=== PATIENT | male | born 1970 | race Hispanic/Latino ===

== ENCOUNTER → 2019-07-08 | Outpatient (CLI) | payer OTHER ==
[2019-07-08 14:14] VITALS: BP 119/77
== END | disposition home or self-care (01) ==
LOC: WHH 08:25
PROVIDERS: ATTEND Podiatrist Foot & Ankle Surgery
DX: T87.81 Dehiscence of amputation stump (principal); E11.621 Type 2 diabetes mellitus with foot ulcer; L97.521 Non-pressure chronic ulcer of other part of left foot limited to breakdown of skin; E11.51 Type 2 diabetes mellitus with diabetic peripheral angiopathy without gangrene; E11.42 Type 2 diabetes mellitus with diabetic polyneuropathy; I10 Essential (primary) hypertension; F32.9 Major depressive disorder, single episode, unspecified; Y83.5 Amputation of limb(s) as the cause of abnormal reaction of the patient, or of later complication, without mention of misadventure at the time of the procedure
CPT/HCPCS: 73630; 87070; 87077 ×2; 87186 ×2; 99205; A4450

== ENCOUNTER → 2019-07-22 | Outpatient (CLI) | payer OTHER ==
[2019-07-22 10:03] VITALS: BP 129/82
== END | disposition home or self-care (01) ==
LOC: WHH 09:50
PROVIDERS: ATTEND Podiatrist Foot & Ankle Surgery
DX: T87.89 Other complications of amputation stump (principal); E11.621 Type 2 diabetes mellitus with foot ulcer; L97.521 Non-pressure chronic ulcer of other part of left foot limited to breakdown of skin; E11.51 Type 2 diabetes mellitus with diabetic peripheral angiopathy without gangrene; E11.42 Type 2 diabetes mellitus with diabetic polyneuropathy; I10 Essential (primary) hypertension; F32.9 Major depressive disorder, single episode, unspecified; Y83.5 Amputation of limb(s) as the cause of abnormal reaction of the patient, or of later complication, without mention of misadventure at the time of the procedure
CPT/HCPCS: 99211

== ENCOUNTER → 2019-07-29 | Outpatient (CLI) | payer OTHER ==
[2019-07-29 13:01] VITALS: BP 128/87
== END | disposition home or self-care (01) ==
LOC: WHH 10:45
PROVIDERS: ATTEND Podiatrist Foot & Ankle Surgery
DX: T87.89 Other complications of amputation stump (principal); E11.621 Type 2 diabetes mellitus with foot ulcer; L97.522 Non-pressure chronic ulcer of other part of left foot with fat layer exposed; E11.51 Type 2 diabetes mellitus with diabetic peripheral angiopathy without gangrene; E11.42 Type 2 diabetes mellitus with diabetic polyneuropathy; I10 Essential (primary) hypertension; F32.9 Major depressive disorder, single episode, unspecified; Y83.5 Amputation of limb(s) as the cause of abnormal reaction of the patient, or of later complication, without mention of misadventure at the time of the procedure
CPT/HCPCS: 11042

== ENCOUNTER → 2019-08-05 | Outpatient (CLI) | payer OTHER ==
[2019-08-05 13:57] VITALS: BP 127/84
== END | disposition home or self-care (01) ==
LOC: WHH 10:45
PROVIDERS: ATTEND Podiatrist Foot & Ankle Surgery
DX: T87.81 Dehiscence of amputation stump (principal); E11.621 Type 2 diabetes mellitus with foot ulcer; L97.521 Non-pressure chronic ulcer of other part of left foot limited to breakdown of skin; E11.42 Type 2 diabetes mellitus with diabetic polyneuropathy; E11.51 Type 2 diabetes mellitus with diabetic peripheral angiopathy without gangrene; I10 Essential (primary) hypertension; F32.9 Major depressive disorder, single episode, unspecified; Y83.5 Amputation of limb(s) as the cause of abnormal reaction of the patient, or of later complication, without mention of misadventure at the time of the procedure
CPT/HCPCS: 11042; A6021

== ENCOUNTER 2019-08-19 10:00 | Outpatient (CLI) | payer OTHER ==
[2019-08-19 14:18] VITALS: BP 139/89
== END 2019-08-19 11:49 | disposition home or self-care (01) ==
LOC: WHH 10:00
PROVIDERS: ATTEND Podiatrist Foot & Ankle Surgery
DX: T87.89 Other complications of amputation stump (principal); E11.621 Type 2 diabetes mellitus with foot ulcer; L97.521 Non-pressure chronic ulcer of other part of left foot limited to breakdown of skin; E11.51 Type 2 diabetes mellitus with diabetic peripheral angiopathy without gangrene; E11.42 Type 2 diabetes mellitus with diabetic polyneuropathy; I10 Essential (primary) hypertension; F32.9 Major depressive disorder, single episode, unspecified; Y83.5 Amputation of limb(s) as the cause of abnormal reaction of the patient, or of later complication, without mention of misadventure at the time of the procedure
CPT/HCPCS: 99214

== ENCOUNTER → 2020-02-10 | Outpatient (CLI) | payer BC ==
[2020-02-10 16:41] VITALS: BP 180/108
== END | disposition home or self-care (01) ==
LOC: WHH 10:00
PROVIDERS: ATTEND Podiatrist Foot & Ankle Surgery
DX: T87.89 Other complications of amputation stump (principal); E11.621 Type 2 diabetes mellitus with foot ulcer; L97.522 Non-pressure chronic ulcer of other part of left foot with fat layer exposed; E11.42 Type 2 diabetes mellitus with diabetic polyneuropathy; E11.51 Type 2 diabetes mellitus with diabetic peripheral angiopathy without gangrene; I10 Essential (primary) hypertension; F32.9 Major depressive disorder, single episode, unspecified; Z89.422 Acquired absence of other left toe(s); Y83.5 Amputation of limb(s) as the cause of abnormal reaction of the patient, or of later complication, without mention of misadventure at the time of the procedure
CPT/HCPCS: 11042; 11045; 82948; A4649

== ENCOUNTER → 2020-02-17 | Outpatient (CLI) | payer BC ==
[~2020-02-17] MED LIST: SILVER NITRATE APPLICATOR 1 SWAB TP ONE
--- NOTE | 2020-02-17 10:15 | NUR ---
RE: RBS = 459 Teaching done with pt regarding elevated blood sugar including need to see pcp for medication adjustment; also taught regarding diabetic diet choices and need to avoid concentrated sweets, etc. Dr Shi spoke with patient regarding the uncontrolled diabetes affecting wound healing. Patient verbalized understanding.
[2020-02-17 10:29] VITALS: BP 156/105
== END | disposition home or self-care (01) ==
LOC: WHH 10:00
PROVIDERS: ATTEND Podiatrist Foot & Ankle Surgery
DX: T87.89 Other complications of amputation stump (principal); E11.621 Type 2 diabetes mellitus with foot ulcer; L97.522 Non-pressure chronic ulcer of other part of left foot with fat layer exposed; E11.42 Type 2 diabetes mellitus with diabetic polyneuropathy; E11.51 Type 2 diabetes mellitus with diabetic peripheral angiopathy without gangrene; I10 Essential (primary) hypertension; F32.9 Major depressive disorder, single episode, unspecified; Y83.5 Amputation of limb(s) as the cause of abnormal reaction of the patient, or of later complication, without mention of misadventure at the time of the procedure
CPT/HCPCS: 11042; 11045; 82948; A4649

== ENCOUNTER → 2020-03-02 | Outpatient (CLI) | payer BC ==
[2020-03-02 10:33] VITALS: BP 166/101
== END | disposition home or self-care (01) ==
LOC: WHH 10:00
PROVIDERS: ATTEND Podiatrist Foot & Ankle Surgery
DX: T87.89 Other complications of amputation stump (principal); E11.621 Type 2 diabetes mellitus with foot ulcer; L97.522 Non-pressure chronic ulcer of other part of left foot with fat layer exposed; E11.42 Type 2 diabetes mellitus with diabetic polyneuropathy; E11.51 Type 2 diabetes mellitus with diabetic peripheral angiopathy without gangrene; I10 Essential (primary) hypertension; F32.9 Major depressive disorder, single episode, unspecified; Y83.5 Amputation of limb(s) as the cause of abnormal reaction of the patient, or of later complication, without mention of misadventure at the time of the procedure
CPT/HCPCS: 97597

== ENCOUNTER → 2020-03-16 | Outpatient (CLI) | payer BC ==
[2020-03-16 15:15] VITALS: BP 173/109
== END | disposition home or self-care (01) ==
LOC: WHH 10:00
PROVIDERS: ATTEND Podiatrist Foot & Ankle Surgery
DX: T87.89 Other complications of amputation stump (principal); E11.621 Type 2 diabetes mellitus with foot ulcer; L97.521 Non-pressure chronic ulcer of other part of left foot limited to breakdown of skin; E11.51 Type 2 diabetes mellitus with diabetic peripheral angiopathy without gangrene; E11.42 Type 2 diabetes mellitus with diabetic polyneuropathy; I10 Essential (primary) hypertension; F32.9 Major depressive disorder, single episode, unspecified; Y83.5 Amputation of limb(s) as the cause of abnormal reaction of the patient, or of later complication, without mention of misadventure at the time of the procedure
CPT/HCPCS: 82948; 99214

== ENCOUNTER 2020-04-27 10:08 | Outpatient (CLI) | payer BC ==
[2020-04-27 10:33] VITALS: BP 142/91
== END 2020-04-27 10:56 | disposition home or self-care (01) ==
LOC: WHH 10:08
PROVIDERS: ATTEND Podiatrist Foot & Ankle Surgery
DX: T87.89 Other complications of amputation stump (principal); E11.621 Type 2 diabetes mellitus with foot ulcer; L97.521 Non-pressure chronic ulcer of other part of left foot limited to breakdown of skin; E11.42 Type 2 diabetes mellitus with diabetic polyneuropathy; E11.51 Type 2 diabetes mellitus with diabetic peripheral angiopathy without gangrene; I10 Essential (primary) hypertension; F32.9 Major depressive disorder, single episode, unspecified; Y83.5 Amputation of limb(s) as the cause of abnormal reaction of the patient, or of later complication, without mention of misadventure at the time of the procedure
CPT/HCPCS: 11055

== ENCOUNTER 2021-11-09 03:37 | Inpatient (IN) | payer BC ==
[~2021-11-09] VITALS: Ht 175.3 cm; Wt 96.1 kg
[2021-11-09] MEDS ORDERED: 0.9%NACL 1000ML 1,000 ML IV ONE ×2 (04:30→06:30)
[2021-11-09 05:00] LABS: BASOPHILS % (AUTO) 0.6 % (0.0-5.0); EOSINOPHILS % (AUTO) 1.2 % (0.0-8.0); HEMATOCRIT 35.1 % (42-54); LYMPHOCYTES % (AUTO) 22.8 % (21.0-51.0); MEAN CORPUSCULAR HEMOGLOBIN 27.1 pg (27.0-33.0); MEAN CORPUSCULAR HGB CONC 31.9 g/dL (32.0-36.0); MONOCYTES % (AUTO) 10.9 % (3.0-13.0); NEUTROPHILS % (AUTO) 62.7 % (40.0-77.0); PLATELET COUNT (AUTO) 258 K/uL (130-400); RED BLOOD CELL COUNT(AUTO) 4.13 MIL/uL (4.50-6.20); WHITE BLOOD COUNT (AUTO) 11.3 K/uL (4.8-10.8)
[2021-11-09 05:08] LABS: CREATININE 1.9 mg/dL (0.5-1.5); POTASSIUM 3.5 mmol/L (3.5-5.1)
[2021-11-09 05:15] LABS: ALBUMIN 1.4 g/dL (3.5-5.0); BILIRUBIN,TOTAL 0.2 mg/dL (0.2-1.0); TOTAL PROTEIN, SERUM 7.2 g/dL (6.0-8.3)
[2021-11-09] MEDS ORDERED: 0.9%NACL 1000ML 1,000 ML IV SCH (06:30)
[2021-11-09] MEDS ORDERED: INSULIN HUMULIN R 100 UNIT/ML 3ML IV SCH (06:30)
[2021-11-09] MEDS ORDERED: CLINDAMYCIN IVPB 900MG/50ML 50 ML IV ONE (06:30)
[2021-11-09] MEDS ORDERED: INSULIN HUMULIN R 100 UNIT/ML 3ML ONE (06:30)
[2021-11-09 06:37] LABS: ABG BASE EXCESS -4.8 mmol/L (-2.0-3.0); ABG HCO3 19.5 mmol/L (21.0-28.0); ABG PCO2 34 mmHg (35-48)
[2021-11-09 06:42] LABS: AMPHET/METH SCREEN,URINE NEGATIVE (NEGATIVE); BARBITURATE SCREEN, URINE NEGATIVE (NEGATIVE); BENZODIAZEPINES SCREEN,URINE NEGATIVE (NEGATIVE); CANNABINOID SCREEN,URINE NEGATIVE (NEGATIVE); COCAINE SCREEN,URINE NEGATIVE (NEGATIVE); OPIATE SCREEN,URINE NEGATIVE (NEGATIVE); PHENCYCLIDINE SCREEN,URINE NEGATIVE (NEGATIVE)
[2021-11-09] MEDS ORDERED: LEVOFLOXACIN 750 MG/D5W 150 ML 150 ML IV SCH ×2 (07:00→09:00)
[2021-11-09] MEDS ORDERED: ACETAMINOPHEN 325 MG TAB PO PRN ×2 (07:00)
[2021-11-09] MEDS ORDERED: ONDANSETRON 4MG INJ IV PRN (07:00)
[2021-11-09] MEDS ORDERED: MORPHINE 2 MG SYG IVP PRN (07:00)
[2021-11-09] MEDS: CEFAZOLIN SODIUM 1 GM VIAL IVP SCH ×3 (07:00→22:35)
[2021-11-09] MEDS ORDERED: VANCOMYCIN PROTOCOL PER PHARMACY IV PRN (07:00)
[2021-11-09] MEDS ORDERED: ATOR10 PO (07:50)
[2021-11-09] MEDS ORDERED: LEVO500T90 PO (07:50)
[2021-11-09] MEDS ORDERED: METF-444 PO (07:50)
[2021-11-09] MEDS ORDERED: LISI30TA4 PO (07:50)
[2021-11-09] MEDS ORDERED: AMLO-257 PO (07:50)
[2021-11-09] MEDS ORDERED: CLIN-141 PO (07:50)
[2021-11-09] MEDS ORDERED: DEXTROSE 50%-WATER 50 ML DISP.SYRIN IV PRN (08:00)
[2021-11-09] MEDS ORDERED: GLUCAGON 1MG KIT 1 MG ML IM PRN (08:00)
[2021-11-09] MEDS: ENOXAPARIN SODIUM 30 MG/0.3 ML SQ SCH (10:41)
[2021-11-09] MEDS ORDERED: HYDRALAZINE 20MG/ML VIAL ONE (11:47)
[2021-11-09] MEDS: HYDRALAZINE 20MG/ML VIAL IV PRN (11:50)
[2021-11-09] MEDS ORDERED: CLINDAMYCIN IVPB 900MG/50ML 50 ML IV SCH (14:00)
[2021-11-09] MEDS ORDERED: INSULIN GLARGINE 100 UNITS/ML 10 ML VIAL SQ SCH (14:00)
[2021-11-09] MEDS: INSULIN HUMULIN R 100 UNIT/ML 3ML SQ SCH ×4 (16:30→20:05)
[2021-11-09 20:00] VITALS: BP 135/79
[2021-11-09] MEDS ORDERED: INSU3INS3 SQ (20:23)
[2021-11-09 23:34] VITALS: BP 122/66
[2021-11-10 03:18] VITALS: BP 155/81
[2021-11-10 05:17] LABS: BASOPHILS % (AUTO) 0.7 % (0.0-5.0); EOSINOPHILS % (AUTO) 1.7 % (0.0-8.0); HEMATOCRIT 27.6 % (42-54); LYMPHOCYTES % (AUTO) 18.1 % (21.0-51.0); MEAN CORPUSCULAR HEMOGLOBIN 27.5 pg (27.0-33.0); MEAN CORPUSCULAR HGB CONC 31.5 g/dL (32.0-36.0); MEAN CORPUSCULAR VOLUME 87.3 fL (79-99); MONOCYTES % (AUTO) 9.5 % (3.0-13.0); NEUTROPHILS % (AUTO) 68.8 % (40.0-77.0); PLATELET COUNT (AUTO) 407 K/uL (130-400); RED BLOOD CELL COUNT(AUTO) 3.16 MIL/uL (4.50-6.20); WHITE BLOOD COUNT (AUTO) 10.4 K/uL (4.8-10.8)
[2021-11-10 05:38] LABS: ASPARTATE AMINOTRANSFERASE 13 U/L (10-37); BILIRUBIN,TOTAL 0.1 mg/dL (0.2-1.0); CARBON DIOXIDE 25 mmol/L (21-32); CHLORIDE 104 mmol/L (101-111); CREATININE 1.7 mg/dL (0.5-1.5); GLOMERULAR FILTR. RATE CALC 45 mL/min (>60); GLUCOSE,RANDOM 296 mg/dL (70-105); POTASSIUM 3.4 mmol/L (3.5-5.1); SODIUM SERUM 135 mmol/L (136-145); TOTAL PROTEIN, SERUM 5.4 g/dL (6.0-8.3); UREA NITROGEN, BLOOD 19 mg/dL (7-18)
[2021-11-10 05:50] LABS: ALANINE AMINOTRANSFERASE < 6 U/L (12-78)
[2021-11-10] MEDS: CEFAZOLIN SODIUM 1 GM VIAL IVP SCH (06:51)
[2021-11-10] MEDS: INSULIN HUMULIN R 100 UNIT/ML 3ML SQ SCH ×8 (06:56→20:24)
[2021-11-10 07:10] VITALS: BP 165/93
[2021-11-10] MEDS: ENOXAPARIN SODIUM 30 MG/0.3 ML SQ SCH (08:04)
[2021-11-10] MEDS: INSULIN GLARGINE 100 UNITS/ML 10 ML VIAL SQ SCH (08:40)
[2021-11-10] MEDS ORDERED: MORPHINE 2 MG SYG IVP PRN (09:30)
[2021-11-10 11:05] VITALS: BP 183/106
[2021-11-10] MEDS ORDERED: KCL 20 MEQ ERTAB PO SCH (11:30)
[2021-11-10] MEDS: HYDRALAZINE 20MG/ML VIAL IV PRN ×2 (12:27→23:22)
[2021-11-10] MEDS ORDERED: PHARMACY COMMUNICATION MISC SCH (13:00)
[2021-11-10] MEDS ORDERED: VANCOMYCIN PROTOCOL PER PHARMACY IV SCH (13:00)
[2021-11-10] MEDS ORDERED: AMLODIPINE 5 MG TAB PO ONE (14:00)
[2021-11-10] MEDS ORDERED: VANCOMYCIN 1.5GM/NS 250ML IV SCH ×2 (14:00)
[2021-11-10 14:29] VITALS: BP 162/91
[2021-11-10 15:20] VITALS: BP 133/67
[2021-11-10] MEDS: CEFEPIME HCL 1 GM VIAL IVP SCH (15:53)
[2021-11-10 19:00] VITALS: BP 140/82
[2021-11-10] MEDS: ATORVASTATIN 20 MG TABLET PO SCH (20:23)
[2021-11-10 23:27] LABS: APPEARANCE,URINE Cloudy (CLEAR); BILIRUBIN,URINE Negative (NEGATIVE); COLOR,URINE Yellow (YELLOW); GLUCOSE, URINE (UA) 500 mg/dL (NEGATIVE); KETONES,URINE Negative (NEGATIVE); LEUKOCYTE ESTERASE ,URINE Negative (NEGATIVE); NITRATE,URINE Negative (NEGATIVE); OCCULT BLOOD,URINE Trace (NEGATIVE); PROTEIN,URINE >=1000 mg/dL (NEGATIVE); UROBILINOGEN,URINE 0.2 mg/dL (0.2-1.0)
[2021-11-11] VITALS: BP 167/95
[2021-11-11 00:10] LABS: BACTERIA,URINE Few /HPF (None Seen); RBC,URINE 0-1 /HPF (0-1); WBC,URINE 0-1 /HPF (0-1); YEAST,URINE BUDDING Few /HPF (None Seen)
[2021-11-11 00:11] LABS: SQUAMOUS EPITHELIAL CELL,UR Few /HPF (0-2)
[2021-11-11 00:14] LABS: FINE GRANULAR CASTS,URINE 0-2 /LPF (None Seen)
[2021-11-11 04:00] VITALS: BP 131/73
[2021-11-11] MEDS: INSULIN HUMULIN R 100 UNIT/ML 3ML SQ SCH ×7 (06:34→20:26)
[2021-11-11] MEDS: INSULIN GLARGINE 100 UNITS/ML 10 ML VIAL SQ SCH (07:00)
[2021-11-11 07:22] LABS: BASOPHILS % (AUTO) 0.5 % (0.0-5.0); EOSINOPHILS % (AUTO) 1.8 % (0.0-8.0); HEMATOCRIT 27.9 % (42-54); LYMPHOCYTES % (AUTO) 18.6 % (21.0-51.0); MEAN CORPUSCULAR HEMOGLOBIN 27.2 pg (27.0-33.0); MEAN CORPUSCULAR HGB CONC 32.6 g/dL (32.0-36.0); MEAN CORPUSCULAR VOLUME 83.3 fL (79-99); MONOCYTES % (AUTO) 8.8 % (3.0-13.0); NEUTROPHILS % (AUTO) 69.6 % (40.0-77.0); PLATELET COUNT (AUTO) 425 K/uL (130-400); RED BLOOD CELL COUNT(AUTO) 3.35 MIL/uL (4.50-6.20); RED CELL DISTRIBUTION WIDTH 12.2 % (11.0-15.5); WHITE BLOOD COUNT (AUTO) 9.6 K/uL (4.8-10.8)
[2021-11-11 07:34] LABS: CREATININE 1.3 mg/dL (0.5-1.5); POTASSIUM 3.2 mmol/L (3.5-5.1)
[2021-11-11 07:44] VITALS: BP 140/80
[2021-11-11] MEDS ORDERED: KCL 20 MEQ ERTAB PO SCH (08:30)
[2021-11-11] MEDS: VANCOMYCIN 750MG VIAL IVPB SCH ×2 (09:32→20:49)
[2021-11-11] MEDS: 0.9% NACL 250ML 250 ML IV SCH (09:33)
[2021-11-11] MEDS: LISINOPRIL 10 MG TABLET PO SCH (09:40)
[2021-11-11] MEDS: AMLODIPINE 5 MG TAB PO SCH (09:40)
[2021-11-11] MEDS: ENOXAPARIN SODIUM 30 MG/0.3 ML SQ SCH (09:41)
[2021-11-11 12:09] VITALS: BP 155/100
[2021-11-11] MEDS: CEFEPIME HCL 1 GM VIAL IVP SCH (14:47)
[2021-11-11 16:16] VITALS: BP 138/87
[2021-11-11 19:00] VITALS: BP 139/83
[2021-11-11] MEDS: ATORVASTATIN 20 MG TABLET PO SCH (20:49)
[2021-11-12] VITALS (7 sets, daily range): BP systolic 127–173; BP diastolic 64–101
[2021-11-12 05:13] LABS: BASOPHILS % (AUTO) 0.6 % (0.0-5.0); EOSINOPHILS % (AUTO) 3.2 % (0.0-8.0); HEMATOCRIT 30.5 % (42-54); LYMPHOCYTES % (AUTO) 27.6 % (21.0-51.0); MEAN CORPUSCULAR HGB CONC 31.5 g/dL (32.0-36.0); MEAN CORPUSCULAR VOLUME 85.7 fL (79-99); MONOCYTES % (AUTO) 10.5 % (3.0-13.0); NEUTROPHILS % (AUTO) 57.1 % (40.0-77.0); PLATELET COUNT (AUTO) 427 K/uL (130-400); RED BLOOD CELL COUNT(AUTO) 3.56 MIL/uL (4.50-6.20); RED CELL DISTRIBUTION WIDTH 12.1 % (11.0-15.5); WHITE BLOOD COUNT (AUTO) 7.7 K/uL (4.8-10.8)
[2021-11-12 05:20] LABS: CREATININE 1.2 mg/dL (0.5-1.5); POTASSIUM 3.8 mmol/L (3.5-5.1)
[2021-11-12] MEDS: INSULIN HUMULIN R 100 UNIT/ML 3ML SQ SCH ×7 (06:34→20:43)
[2021-11-12] MEDS: INSULIN GLARGINE 100 UNITS/ML 10 ML VIAL SQ SCH (07:06)
[2021-11-12] MEDS: LISINOPRIL 10 MG TABLET PO SCH (08:45)
[2021-11-12] MEDS: AMLODIPINE 5 MG TAB PO SCH (08:45)
[2021-11-12] MEDS: ENOXAPARIN SODIUM 30 MG/0.3 ML SQ SCH (08:46)
[2021-11-12] MEDS: VANCOMYCIN 750MG VIAL IVPB SCH ×2 (08:46→20:43)
[2021-11-12] MEDS: CEFEPIME HCL 1 GM VIAL IVP SCH (14:28)
[2021-11-12] MEDS: ATORVASTATIN 20 MG TABLET PO SCH (20:43)
[2021-11-13 04:08] VITALS: BP 157/92
[2021-11-13] MEDS: INSULIN HUMULIN R 100 UNIT/ML 3ML SQ SCH ×7 (06:30→20:16)
[2021-11-13] MEDS: INSULIN GLARGINE 100 UNITS/ML 10 ML VIAL SQ SCH (06:40)
[2021-11-13 07:25] VITALS: BP 132/81
[2021-11-13] MEDS: LISINOPRIL 10 MG TABLET PO SCH (08:23)
[2021-11-13] MEDS: ENOXAPARIN SODIUM 30 MG/0.3 ML SQ SCH (08:23)
[2021-11-13] MEDS: AMLODIPINE 5 MG TAB PO SCH (08:23)
[2021-11-13] MEDS: 0.9% NACL 250ML 250 ML IV SCH ×2 (08:24→20:16)
[2021-11-13] MEDS: VANCOMYCIN 750MG VIAL IVPB SCH ×2 (08:24→20:16)
[2021-11-13 11:25] VITALS: BP 167/94
[2021-11-13 12:17] VITALS: BP 131/76
[2021-11-13] MEDS: CEFEPIME HCL 1 GM VIAL IVP SCH (13:47)
[2021-11-13 15:25] VITALS: BP 139/90
[2021-11-13 20:00] VITALS: BP 108/70
[2021-11-13] MEDS: ATORVASTATIN 20 MG TABLET PO SCH (20:15)
[2021-11-14] VITALS (7 sets, daily range): BP systolic 123–179; BP diastolic 71–100
[2021-11-14] MEDS: INSULIN HUMULIN R 100 UNIT/ML 3ML SQ SCH ×7 (06:38→20:23)
[2021-11-14] MEDS: INSULIN GLARGINE 100 UNITS/ML 10 ML VIAL SQ SCH (06:39)
[2021-11-14] MEDS: VANCOMYCIN 750MG VIAL IVPB SCH (09:26)
[2021-11-14] MEDS: AMLODIPINE 5 MG TAB PO SCH (09:27)
[2021-11-14] MEDS: 0.9% NACL 250ML 250 ML IV SCH (09:27)
[2021-11-14] MEDS: LISINOPRIL 10 MG TABLET PO SCH (09:27)
[2021-11-14] MEDS: ENOXAPARIN SODIUM 30 MG/0.3 ML SQ SCH (09:28)
[2021-11-14] MEDS: CEFEPIME HCL 1 GM VIAL IVP SCH (11:54)
[2021-11-14] MEDS: ATORVASTATIN 20 MG TABLET PO SCH (21:04)
[2021-11-14] MEDS: HYDRALAZINE 20MG/ML VIAL IV PRN (21:05)
[2021-11-14] MEDS ORDERED: AMLODIPINE 5 MG TAB PO ONE (22:00)
[2021-11-15] VITALS (19 sets, daily range): BP systolic 117–177; BP diastolic 72–115
[2021-11-15 04:31] LABS: BASOPHILS % (AUTO) 0.8 % (0.0-5.0); EOSINOPHILS % (AUTO) 2.1 % (0.0-8.0); HEMATOCRIT 29.4 % (42-54); LYMPHOCYTES % (AUTO) 21.4 % (21.0-51.0); MEAN CORPUSCULAR HEMOGLOBIN 27.2 pg (27.0-33.0); MEAN CORPUSCULAR HGB CONC 31.6 g/dL (32.0-36.0); MONOCYTES % (AUTO) 8.8 % (3.0-13.0); NEUTROPHILS % (AUTO) 66.3 % (40.0-77.0); PLATELET COUNT (AUTO) 397 K/uL (130-400); RED BLOOD CELL COUNT(AUTO) 3.42 MIL/uL (4.50-6.20); RED CELL DISTRIBUTION WIDTH 12.6 % (11.0-15.5)
[2021-11-15 04:37] LABS: CREATININE 1.9 mg/dL (0.5-1.5); POTASSIUM 4.6 mmol/L (3.5-5.1)
[2021-11-15] MEDS: INSULIN GLARGINE 100 UNITS/ML 10 ML VIAL SQ SCH (07:00)
[2021-11-15] MEDS: INSULIN HUMULIN R 100 UNIT/ML 3ML SQ SCH ×7 (07:30→21:45)
[2021-11-15] MEDS: ENOXAPARIN SODIUM 30 MG/0.3 ML SQ SCH (09:00)
[2021-11-15] MEDS: LISINOPRIL 10 MG TABLET PO SCH (09:00)
[2021-11-15] MEDS: 0.9% NACL 250ML 250 ML IV SCH (09:20)
[2021-11-15] MEDS: VANCOMYCIN 750MG VIAL IVPB SCH (09:20)
[2021-11-15] MEDS ORDERED: ROPIVACAINE 0.5% 5MG/ML 30ML IJ ONE (11:45)
[2021-11-15] MEDS ORDERED: KETAMINE 50MG/ML SYRINGE 50 MG/ML DISP.SYRIN IV ONE (11:45)
[2021-11-15] MEDS ORDERED: DEXAMETHASONE SOD PHOSPHATE 4 MG/ML 1ML VIAL ONE (11:48)
[2021-11-15] MEDS ORDERED: MIDAZOLAM HCL 1 MG/ML 2ML VIAL ONE (11:50)
[2021-11-15] MEDS ORDERED: MIDAZOLAM HCL 1 MG/ML 5ML VIAL ONE (11:52)
[2021-11-15] MEDS ORDERED: PROPOFOL 10 MG/ML 20ML VIAL IV ONE (12:28)
[2021-11-15] MEDS: CEFEPIME HCL 1 GM VIAL IVP SCH (14:43)
[2021-11-15] MEDS ORDERED: INSULIN GLARGINE 100 UNITS/ML 10 ML VIAL SQ ONE (18:00)
[2021-11-15] MEDS: ATORVASTATIN 20 MG TABLET PO SCH (20:53)
[2021-11-15] MEDS: AMLODIPINE 5 MG TAB PO SCH (20:53)
[2021-11-16] VITALS: BP 144/87
[2021-11-16 04:00] VITALS: BP 164/95
[2021-11-16 05:14] LABS: BASOPHILS % (AUTO) 0.1 % (0.0-5.0); MEAN CORPUSCULAR HEMOGLOBIN 27.3 pg (27.0-33.0); MEAN CORPUSCULAR HGB CONC 32.3 g/dL (32.0-36.0); MEAN CORPUSCULAR VOLUME 84.4 fL (79-99); MONOCYTES % (AUTO) 5.8 % (3.0-13.0); NEUTROPHILS % (AUTO) 80.4 % (40.0-77.0); PLATELET COUNT (AUTO) 363 K/uL (130-400); RED BLOOD CELL COUNT(AUTO) 3.08 MIL/uL (4.50-6.20); RED CELL DISTRIBUTION WIDTH 12.5 % (11.0-15.5); WHITE BLOOD COUNT (AUTO) 8.8 K/uL (4.8-10.8)
[2021-11-16 05:39] LABS: POTASSIUM 4.8 mmol/L (3.5-5.1)
[2021-11-16] MEDS: INSULIN HUMULIN R 100 UNIT/ML 3ML SQ SCH ×7 (06:53→21:34)
[2021-11-16] MEDS ORDERED: INSULIN GLARGINE 100 UNITS/ML 10 ML VIAL SQ SCH (07:00)
[2021-11-16 08:00] VITALS: BP 147/87
[2021-11-16] MEDS: LISINOPRIL 10 MG TABLET PO SCH (08:43)
[2021-11-16] MEDS: VANCOMYCIN 750MG VIAL IVPB SCH (08:44)
[2021-11-16] MEDS: ENOXAPARIN SODIUM 30 MG/0.3 ML SQ SCH (08:45)
[2021-11-16] MEDS: 0.9% NACL 250ML 250 ML IV SCH (09:07)
[2021-11-16 11:00] VITALS: BP 167/100
[2021-11-16] MEDS ORDERED: AMLODIPINE 5 MG TAB PO ONE (15:30)
[2021-11-16] MEDS: CEFEPIME HCL 1 GM VIAL IVP SCH (15:31)
[2021-11-16 16:00] VITALS: BP 169/98
[2021-11-16] MEDS ORDERED: FUROSEMIDE 20MG VIAL IV SCH (18:00)
[2021-11-16] MEDS ORDERED: TORSEMIDE 20 MG TAB PO SCH (20:00)
[2021-11-16 20:16] VITALS: BP 155/86
[2021-11-16] MEDS ORDERED: PHARMACY COMMUNICATION MISC SCH (20:30)
[2021-11-16] MEDS: ATORVASTATIN 20 MG TABLET PO SCH (21:23)
[2021-11-16] MEDS: AMLODIPINE 5 MG TAB PO SCH (21:23)
[2021-11-16] MEDS: TRAMADOL HCL 50 MG TABLET PO PRN (21:25)
[2021-11-17] VITALS (8 sets, daily range): BP systolic 133–165; BP diastolic 77–108
[2021-11-17] MEDS ORDERED: MORPHINE 2 MG SYG ONE (00:06)
[2021-11-17] MEDS ORDERED: MORPHINE 2 MG SYG IVP ONE (00:30)
[2021-11-17 04:40] LABS: BASOPHILS % (AUTO) 0.5 % (0.0-5.0); HEMATOCRIT 30.5 % (42-54); LYMPHOCYTES % (AUTO) 25.7 % (21.0-51.0); MEAN CORPUSCULAR HEMOGLOBIN 26.4 pg (27.0-33.0); MEAN CORPUSCULAR HGB CONC 30.8 g/dL (32.0-36.0); MEAN CORPUSCULAR VOLUME 85.7 fL (79-99); MONOCYTES % (AUTO) 7.9 % (3.0-13.0); NEUTROPHILS % (AUTO) 61.2 % (40.0-77.0); PLATELET COUNT (AUTO) 404 K/uL (130-400); RED BLOOD CELL COUNT(AUTO) 3.56 MIL/uL (4.50-6.20); RED CELL DISTRIBUTION WIDTH 12.5 % (11.0-15.5); WHITE BLOOD COUNT (AUTO) 11.8 K/uL (4.8-10.8)
[2021-11-17 04:48] LABS: CREATININE 1.8 mg/dL (0.5-1.5); POTASSIUM 3.5 mmol/L (3.5-5.1)
[2021-11-17] MEDS: INSULIN HUMULIN R 100 UNIT/ML 3ML SQ SCH ×7 (06:41→21:00)
[2021-11-17] MEDS: INSULIN GLARGINE 100 UNITS/ML 10 ML VIAL SQ SCH (06:44)
[2021-11-17] MEDS ORDERED: MAGNESIUM 2GM PREMIX 50ML 50 ML IV SCH (08:30)
[2021-11-17] MEDS: TORSEMIDE 20 MG TAB PO SCH (09:20)
[2021-11-17] MEDS: LISINOPRIL 10 MG TABLET PO SCH (09:21)
[2021-11-17] MEDS: VANCOMYCIN 750MG VIAL IVPB SCH (09:22)
[2021-11-17] MEDS: 0.9% NACL 250ML 250 ML IV SCH (09:22)
[2021-11-17] MEDS: ENOXAPARIN SODIUM 30 MG/0.3 ML SQ SCH (09:23)
[2021-11-17] MEDS: CEFEPIME HCL 1 GM VIAL IVP SCH (13:48)
[2021-11-17] MEDS ORDERED: DOCUSATE SODIUM 100 MG CAP PO SCH (15:00)
[2021-11-17] MEDS ORDERED: POLYETHYLENE GLYCOL 3350 17 GM POWD.PACK PO SCH (15:00)
[2021-11-17] MEDS: HYDRALAZINE 20MG/ML VIAL IV PRN (15:48)
[2021-11-17] MEDS ORDERED: ALBUMIN (HUMAN) 25% 100 ML IV SCH (18:44)
[2021-11-17] MEDS: ATORVASTATIN 20 MG TABLET PO SCH (21:40)
[2021-11-17] MEDS: AMLODIPINE 5 MG TAB PO SCH (21:40)
[2021-11-18 03:38] VITALS: BP 142/80
[2021-11-18] MEDS: INSULIN GLARGINE 100 UNITS/ML 10 ML VIAL SQ SCH (06:47)
[2021-11-18] MEDS: INSULIN HUMULIN R 100 UNIT/ML 3ML SQ SCH ×7 (06:49→20:20)
[2021-11-18] MEDS ORDERED: ALBUMIN (HUMAN) 25% 100 ML IV SCH (07:30)
[2021-11-18] MEDS: TORSEMIDE 20 MG TAB PO SCH (07:47)
[2021-11-18] MEDS: TRAMADOL HCL 50 MG TABLET PO PRN ×2 (07:48→17:18)
[2021-11-18] MEDS: LISINOPRIL 10 MG TABLET PO SCH (07:48)
[2021-11-18] MEDS: POLYETHYLENE GLYCOL 3350 17 GM POWD.PACK PO SCH (07:48)
[2021-11-18] MEDS: ENOXAPARIN SODIUM 30 MG/0.3 ML SQ SCH (07:49)
[2021-11-18 08:00] VITALS: BP 153/84
[2021-11-18 08:08] LABS: CREATININE 1.6 mg/dL (0.5-1.5); MAGNESIUM 2.2 mg/dL (1.80-2.40); POTASSIUM 3.7 mmol/L (3.5-5.1)
[2021-11-18] MEDS: VANCOMYCIN 750MG VIAL IVPB SCH (09:43)
[2021-11-18] MEDS: 0.9% NACL 250ML 250 ML IV SCH (09:44)
[2021-11-18 12:00] VITALS: BP 124/79
[2021-11-18] MEDS: CEFEPIME HCL 1 GM VIAL IVP SCH (13:12)
[2021-11-18 16:00] VITALS: BP 157/90
[2021-11-18 20:05] VITALS: BP 146/80
[2021-11-18] MEDS: ATORVASTATIN 20 MG TABLET PO SCH (20:57)
[2021-11-18] MEDS: AMLODIPINE 5 MG TAB PO SCH (20:57)
[2021-11-18] MEDS: LACTULOSE 20 GM/30 ML UDCUP PO SCH (23:51)
[2021-11-18] MEDS: DOCUSATE SODIUM 100 MG CAP PO SCH (23:51)
[2021-11-18] MEDS: SENNOSIDES 8.6 MG TABLET PO SCH (23:51)
[2021-11-18 23:52] VITALS: BP 161/97
[2021-11-19 03:37] VITALS: BP 151/88
[2021-11-19] MEDS: LACTULOSE 20 GM/30 ML UDCUP PO SCH ×4 (05:12→20:31)
[2021-11-19 05:51] LABS: BASOPHILS % (AUTO) 0.6 % (0.0-5.0); EOSINOPHILS % (AUTO) 4.2 % (0.0-8.0); HEMATOCRIT 27.6 % (42-54); MEAN CORPUSCULAR HGB CONC 30.4 g/dL (32.0-36.0); MEAN CORPUSCULAR VOLUME 88.7 fL (79-99); MONOCYTES % (AUTO) 7.7 % (3.0-13.0); NEUTROPHILS % (AUTO) 62.8 % (40.0-77.0); PLATELET COUNT (AUTO) 337 K/uL (130-400); RED BLOOD CELL COUNT(AUTO) 3.11 MIL/uL (4.50-6.20); RED CELL DISTRIBUTION WIDTH 13.2 % (11.0-15.5); WHITE BLOOD COUNT (AUTO) 8.7 K/uL (4.8-10.8)
[2021-11-19 06:02] LABS: CREATININE 1.6 mg/dL (0.5-1.5); POTASSIUM 4.3 mmol/L (3.5-5.1)
[2021-11-19] MEDS: INSULIN HUMULIN R 100 UNIT/ML 3ML SQ SCH ×7 (06:41→20:31)
[2021-11-19] MEDS: INSULIN GLARGINE 100 UNITS/ML 10 ML VIAL SQ SCH (06:41)
[2021-11-19 08:00] VITALS: BP 158/92
[2021-11-19] MEDS ORDERED: ALBUMIN (HUMAN) 25% 100 ML IV SCH (08:30)
[2021-11-19] MEDS: POLYETHYLENE GLYCOL 3350 17 GM POWD.PACK PO SCH (08:33)
[2021-11-19] MEDS: VANCOMYCIN 750MG VIAL IVPB SCH (08:33)
[2021-11-19] MEDS: 0.9% NACL 250ML 250 ML IV SCH (08:33)
[2021-11-19] MEDS: TORSEMIDE 20 MG TAB PO SCH (08:34)
[2021-11-19] MEDS: LISINOPRIL 10 MG TABLET PO SCH (08:34)
[2021-11-19] MEDS: DOCUSATE SODIUM 100 MG CAP PO SCH ×2 (08:35→20:31)
[2021-11-19] MEDS: SENNOSIDES 8.6 MG TABLET PO SCH ×2 (08:35→20:30)
[2021-11-19] MEDS: ENOXAPARIN SODIUM 30 MG/0.3 ML SQ SCH (08:36)
[2021-11-19 11:48] VITALS: BP 172/101
[2021-11-19] MEDS: HYDRALAZINE 20MG/ML VIAL IV PRN (12:21)
[2021-11-19 13:12] VITALS: BP 164/96
[2021-11-19] MEDS ORDERED: BISACODYL 10 MG SUPP.RECT RC PRN (14:00)
[2021-11-19] MEDS: CEFEPIME HCL 1 GM VIAL IVP SCH (14:17)
[2021-11-19 16:00] VITALS: BP 143/93
[2021-11-19] MEDS: NYSTATIN 15 GM POWDER TP SCH ×2 (16:52→20:31)
[2021-11-19 20:00] VITALS: BP 145/89
[2021-11-19] MEDS: ATORVASTATIN 20 MG TABLET PO SCH (20:31)
[2021-11-19] MEDS: AMLODIPINE 5 MG TAB PO SCH (20:31)
[2021-11-19] MEDS: TRAMADOL HCL 50 MG TABLET PO PRN (21:37)
[2021-11-20] VITALS (25 sets, daily range): BP systolic 116–166; BP diastolic 66–99
[2021-11-20] MEDS: LACTULOSE 20 GM/30 ML UDCUP PO SCH ×5 (00:41→22:35)
[2021-11-20] MEDS: INSULIN HUMULIN R 100 UNIT/ML 3ML SQ SCH ×7 (06:11→20:57)
[2021-11-20] MEDS: INSULIN GLARGINE 100 UNITS/ML 10 ML VIAL SQ SCH (06:15)
[2021-11-20 06:25] LABS: BASOPHILS % (AUTO) 0.3 % (0.0-5.0); EOSINOPHILS % (AUTO) 4.3 % (0.0-8.0); LYMPHOCYTES % (AUTO) 22.7 % (21.0-51.0); MEAN CORPUSCULAR HEMOGLOBIN 27.7 pg (27.0-33.0); MEAN CORPUSCULAR HGB CONC 32.1 g/dL (32.0-36.0); MEAN CORPUSCULAR VOLUME 86.2 fL (79-99); MONOCYTES % (AUTO) 7.4 % (3.0-13.0); NEUTROPHILS % (AUTO) 64.9 % (40.0-77.0); PLATELET COUNT (AUTO) 357 K/uL (130-400); RED BLOOD CELL COUNT(AUTO) 3.25 MIL/uL (4.50-6.20); RED CELL DISTRIBUTION WIDTH 13.2 % (11.0-15.5); WHITE BLOOD COUNT (AUTO) 9.1 K/uL (4.8-10.8)
[2021-11-20 06:38] LABS: INR 0.99 (0.85-1.15); PROTHROMBIN TIME 10.8 SEC (9.6-11.6)
[2021-11-20 06:39] LABS: PARTIAL THROMBOPLASTIN TIME 31.6 SEC (26.3-35.5)
[2021-11-20 06:44] LABS: ALBUMIN 1.9 g/dL (3.5-5.0); BILIRUBIN,TOTAL 0.3 mg/dL (0.2-1.0); CREATININE 1.5 mg/dL (0.5-1.5); MAGNESIUM 2.1 mg/dL (1.80-2.40); POTASSIUM 3.5 mmol/L (3.5-5.1)
[2021-11-20] MEDS ORDERED: LIDOCAINE HCL-MPF 1% 2ML VIAL IV PRN ×2 (09:00)
[2021-11-20] MEDS: SENNOSIDES 8.6 MG TABLET PO SCH ×2 (09:00→20:56)
[2021-11-20] MEDS ORDERED: KCL 20 MEQ ERTAB PO PRN (09:00)
[2021-11-20] MEDS ORDERED: POTASSIUM CHLORIDE 20MEQ/100ML 100 ML IV PRN ×2 (09:00)
[2021-11-20] MEDS: ENOXAPARIN SODIUM 30 MG/0.3 ML SQ SCH (09:00)
[2021-11-20] MEDS: LISINOPRIL 10 MG TABLET PO SCH (09:00)
[2021-11-20] MEDS: POLYETHYLENE GLYCOL 3350 17 GM POWD.PACK PO SCH (09:00)
[2021-11-20] MEDS: TORSEMIDE 20 MG TAB PO SCH (09:00)
[2021-11-20] MEDS ORDERED: POTASSIUM CHLORIDE 10% ELIXIR 20 MEQ/15 ML UDCUP PO PRN (09:00)
[2021-11-20] MEDS: DOCUSATE SODIUM 100 MG CAP PO SCH ×2 (11:04→20:55)
[2021-11-20] MEDS: VANCOMYCIN 750MG VIAL IVPB SCH (11:09)
[2021-11-20] MEDS: 0.9% NACL 250ML 250 ML IV SCH (11:10)
[2021-11-20] MEDS: NYSTATIN 15 GM POWDER TP SCH ×2 (11:11→21:57)
[2021-11-20] MEDS ORDERED: PROPOFOL 10 MG/ML 20ML VIAL IV ONE (12:44)
[2021-11-20] MEDS ORDERED: MIDAZOLAM HCL 1 MG/ML 2ML VIAL ONE (12:44)
[2021-11-20] MEDS ORDERED: ONDANSETRON 4MG INJ ONE (12:44)
[2021-11-20] MEDS ORDERED: ROCURONIUM 10MG/1ML SYR 10 MG/ML ML ONE (13:02)
[2021-11-20] MEDS ORDERED: FENTANYL CITRATE PF 50 MCG/1 ML 2ML VIAL ONE (13:02)
[2021-11-20] MEDS ORDERED: EPHEDRINE SULFATE 50 MG/ML AMPULE ONE (13:02)
[2021-11-20] MEDS ORDERED: MEPERIDINE-PF 25 MG/ML SYG ONE (14:12)
[2021-11-20] MEDS: CEFEPIME HCL 1 GM VIAL IVP SCH (16:53)
[2021-11-20] MEDS: HYDROMORPHONE 0.5 MG SYG (0.5MG/0.5ML) IVP PRN (16:54)
[2021-11-20] MEDS: TRAMADOL HCL 50 MG TABLET PO PRN (20:16)
[2021-11-20] MEDS: AMLODIPINE 5 MG TAB PO SCH (20:55)
[2021-11-20] MEDS: ATORVASTATIN 20 MG TABLET PO SCH (20:55)
[2021-11-20] MEDS ORDERED: HYDROCODONE/ACETAMINOPHEN 10/325 MG TAB ONE (22:21)
[2021-11-20] MEDS: HYDROCODONE/ACETAMINOPHEN 10/325 MG TAB PO SCH (22:30)
[2021-11-21] VITALS: BP 140/90
[2021-11-21] MEDS: HYDROMORPHONE 0.5 MG SYG (0.5MG/0.5ML) IVP PRN
[2021-11-21 04:00] VITALS: BP 122/85
[2021-11-21] MEDS: HYDROCODONE/ACETAMINOPHEN 10/325 MG TAB PO SCH ×4 (04:46→22:31)
[2021-11-21] MEDS: INSULIN HUMULIN R 100 UNIT/ML 3ML SQ SCH ×7 (06:51→20:41)
[2021-11-21] MEDS: INSULIN GLARGINE 100 UNITS/ML 10 ML VIAL SQ SCH (06:54)
[2021-11-21 08:00] VITALS: BP 133/80
[2021-11-21] MEDS: 0.9% NACL 250ML 250 ML IV SCH (09:30)
[2021-11-21] MEDS: VANCOMYCIN 750MG VIAL IVPB SCH (09:30)
[2021-11-21] MEDS: ENOXAPARIN SODIUM 30 MG/0.3 ML SQ SCH (09:31)
[2021-11-21] MEDS: DOCUSATE SODIUM 100 MG CAP PO SCH ×2 (09:32→20:45)
[2021-11-21] MEDS: SENNOSIDES 8.6 MG TABLET PO SCH ×2 (09:32→20:46)
[2021-11-21] MEDS: TORSEMIDE 20 MG TAB PO SCH (09:33)
[2021-11-21] MEDS: POLYETHYLENE GLYCOL 3350 17 GM POWD.PACK PO SCH (09:33)
[2021-11-21] MEDS: LISINOPRIL 10 MG TABLET PO SCH (09:34)
[2021-11-21] MEDS: NYSTATIN 15 GM POWDER TP SCH ×2 (09:36→20:53)
[2021-11-21 11:56] VITALS: BP 135/86
[2021-11-21] MEDS: CEFEPIME HCL 1 GM VIAL IVP SCH (14:56)
[2021-11-21 16:00] VITALS: BP 136/82
[2021-11-21 20:00] VITALS: BP 138/94
[2021-11-21] MEDS: ATORVASTATIN 20 MG TABLET PO SCH (20:46)
[2021-11-21] MEDS: AMLODIPINE 5 MG TAB PO SCH (20:46)
[2021-11-22] VITALS (8 sets, daily range): BP systolic 131–155; BP diastolic 78–92
[2021-11-22] MEDS: HYDROCODONE/ACETAMINOPHEN 10/325 MG TAB PO SCH ×4 (04:30→16:55)
[2021-11-22] MEDS: INSULIN HUMULIN R 100 UNIT/ML 3ML SQ SCH ×7 (06:18→21:00)
[2021-11-22] MEDS ORDERED: INSULIN GLARGINE 100 UNITS/ML 10 ML VIAL SQ SCH (07:00)
[2021-11-22] MEDS: INSULIN GLARGINE 100 UNITS/ML 10 ML VIAL SQ SCH (07:02)
[2021-11-22] MEDS: DOCUSATE SODIUM 100 MG CAP PO SCH ×2 (09:59→20:10)
[2021-11-22] MEDS: TORSEMIDE 20 MG TAB PO SCH (09:59)
[2021-11-22] MEDS: VANCOMYCIN 750MG VIAL IVPB SCH (09:59)
[2021-11-22] MEDS: POLYETHYLENE GLYCOL 3350 17 GM POWD.PACK PO SCH (09:59)
[2021-11-22] MEDS: 0.9% NACL 250ML 250 ML IV SCH (09:59)
[2021-11-22] MEDS: ENOXAPARIN SODIUM 30 MG/0.3 ML SQ SCH (09:59)
[2021-11-22] MEDS: SENNOSIDES 8.6 MG TABLET PO SCH ×2 (09:59→20:10)
[2021-11-22] MEDS: LISINOPRIL 10 MG TABLET PO SCH (10:00)
[2021-11-22] MEDS: NYSTATIN 15 GM POWDER TP SCH ×2 (10:00→21:00)
[2021-11-22] MEDS: CEFEPIME HCL 1 GM VIAL IVP SCH (14:37)
[2021-11-22] MEDS: AMLODIPINE 5 MG TAB PO SCH (20:10)
[2021-11-22] MEDS: ATORVASTATIN 20 MG TABLET PO SCH (20:10)
[2021-11-23] MEDS: HYDROCODONE/ACETAMINOPHEN 10/325 MG TAB PO SCH ×4 (00:11→17:28)
[2021-11-23 04:00] VITALS: BP 130/75
[2021-11-23] MEDS: INSULIN HUMULIN R 100 UNIT/ML 3ML SQ SCH ×7 (06:20→20:20)
[2021-11-23] MEDS: INSULIN GLARGINE 100 UNITS/ML 10 ML VIAL SQ SCH (06:21)
[2021-11-23 08:00] VITALS: BP 132/77
[2021-11-23] MEDS: ENOXAPARIN SODIUM 30 MG/0.3 ML SQ SCH (09:37)
[2021-11-23] MEDS: VANCOMYCIN 750MG VIAL IVPB SCH (09:38)
[2021-11-23] MEDS: DOCUSATE SODIUM 100 MG CAP PO SCH ×2 (09:38→19:54)
[2021-11-23] MEDS: 0.9% NACL 250ML 250 ML IV SCH (09:38)
[2021-11-23] MEDS: TORSEMIDE 20 MG TAB PO SCH (09:39)
[2021-11-23] MEDS: LISINOPRIL 10 MG TABLET PO SCH (09:39)
[2021-11-23] MEDS: SENNOSIDES 8.6 MG TABLET PO SCH ×2 (09:40→19:54)
[2021-11-23] MEDS: POLYETHYLENE GLYCOL 3350 17 GM POWD.PACK PO SCH (09:42)
[2021-11-23] MEDS: NYSTATIN 15 GM POWDER TP SCH ×2 (09:49→19:55)
[2021-11-23 12:00] VITALS: BP 143/81
[2021-11-23 16:00] VITALS: BP 162/102
[2021-11-23] MEDS: ATORVASTATIN 20 MG TABLET PO SCH (19:54)
[2021-11-23] MEDS: AMLODIPINE 5 MG TAB PO SCH (19:54)
== END 2021-11-23 20:41 | DRG 474 ==
LOC: EDH 03:37 → EDHIP 06:36 → 3CH 19:12
PROVIDERS: ADMIT Hospitalist; ATTEND Hospitalist
PROC: 0Y6J0Z3 Detachment at Left Lower Leg, Low, Open Approach (ICD-10-PCS; 2021-11-15)
PROC: 0KBT0ZZ Excision of Left Lower Leg Muscle, Open Approach (ICD-10-PCS; principal; 2021-11-22)
DX: T87.44 Infection of amputation stump, left lower extremity (principal); E43 Unspecified severe protein-calorie malnutrition; E11.52 Type 2 diabetes mellitus with diabetic peripheral angiopathy with gangrene; I16.9 Hypertensive crisis, unspecified; E87.1 Hypo-osmolality and hyponatremia; N17.9 Acute kidney failure, unspecified; L02.612 Cutaneous abscess of left foot; L03.116 Cellulitis of left lower limb; M86.8X7 Other osteomyelitis, ankle and foot; L97.529 Non-pressure chronic ulcer of other part of left foot with unspecified severity; E11.621 Type 2 diabetes mellitus with foot ulcer; E11.69 Type 2 diabetes mellitus with other specified complication; E78.5 Hyperlipidemia, unspecified; E11.22 Type 2 diabetes mellitus with diabetic chronic kidney disease; N18.9 Chronic kidney disease, unspecified; Z20.822 Contact with and (suspected) exposure to COVID-19; B35.1 Tinea unguium; D64.9 Anemia, unspecified; E11.649 Type 2 diabetes mellitus with hypoglycemia without coma; E66.9 Obesity, unspecified; E87.70 Fluid overload, unspecified; E88.09 Other disorders of plasma-protein metabolism, not elsewhere classified; E11.65 Type 2 diabetes mellitus with hyperglycemia; G60.0 Hereditary motor and sensory neuropathy; I12.9 Hypertensive chronic kidney disease with stage 1 through stage 4 chronic kidney disease, or unspecified chronic kidney disease; L84 Corns and callosities; L60.2 Onychogryphosis; Y83.5 Amputation of limb(s) as the cause of abnormal reaction of the patient, or of later complication, without mention of misadventure at the time of the procedure; Y92.89 Other specified places as the place of occurrence of the external cause; Z68.31 Body mass index [BMI] 31.0-31.9, adult; Z79.4 Long term (current) use of insulin; Z79.84 Long term (current) use of oral hypoglycemic drugs; Z91.19 Patient's noncompliance with other medical treatment and regimen; Z83.3 Family history of diabetes mellitus; Z82.49 Family history of ischemic heart disease and other diseases of the circulatory system; R19.7 Diarrhea, unspecified
CPT/HCPCS: 36415; 36600; 73700; 73721; 76770; 80048; 80053; 80202; 80305; 81001; 82010; 82570; 82803; 82948; 83036; 83605; 83735; 84156; 84484; 85025; 85610; 85730; 87040; 87070; 87076; 87077; 87186; 87635; 93925; 93970; 93971; 97039; 99291; A4606; G0378; J0360; J0690; J0692; J1100; J1170; J1650; J1815; J1940; J1956; J2175; J2250; J2405; J2704; J2795; J3010; J3370; J3475; J3490; J7030; J7050; J7120; P9046

== ENCOUNTER 2024-02-11 10:24 | Emergency (ER) | payer BC, MEDICARE ==
[~2024-02-11] VITALS: Ht 175.3 cm; Wt 83.0 kg
[~2024-02-11 10:24] MED LIST changes: +ASCO250T70 PO; +ATOR10 PO; +ESCI-8 PO; +HYDR25TA67 PO; +LISI20TA24 PO; -SILVER NITRATE APPLICATOR 1 SWAB TP ONE
[2024-02-11 10:50] LABS: BASOPHILS # (AUTO) 0.03 K/uL (0.00-0.20); BASOPHILS % (AUTO) 0.3 % (0.0-5.0); EOSINOPHILS # (AUTO) 0.03 K/uL (0.00-0.70); EOSINOPHILS % (AUTO) 0.3 % (0.0-8.0); HEMATOCRIT 28.1 % (42-54); IMMATURE GRANULOCYTE ABSOLUTE 0.11 K/uL (0-1); LYMPHOCYTES # (AUTO) 0.9 K/uL (1.0-4.8); LYMPHOCYTES % (AUTO) 8.7 % (21.0-51.0); MEAN CORPUSCULAR HEMOGLOBIN 28.3 pg (27.0-33.0); MEAN CORPUSCULAR HGB CONC 31.7 g/dL (32.0-36.0); MEAN CORPUSCULAR VOLUME 89.2 fL (79-99); MONOCYTES # (AUTO) 0.7 K/uL (0.1-1.0); MONOCYTES % (AUTO) 6.7 % (3.0-13.0); PLATELET COUNT (AUTO) 212 K/uL (130-400); RED BLOOD CELL COUNT(AUTO) 3.15 MIL/uL (4.50-6.20); RED CELL DISTRIBUTION WIDTH 14.3 % (11.0-15.5); WHITE BLOOD COUNT (AUTO) 10.8 K/uL (4.8-10.8)
[2024-02-11 11:03] LABS: ALBUMIN 2.9 g/dL (3.5-5.0); BILIRUBIN,TOTAL 0.7 mg/dL (0.2-1.0); TOTAL PROTEIN, SERUM 7.6 g/dL (6.0-8.3)
[2024-02-11 11:04] LABS: POTASSIUM 3.8 mmol/L (3.5-5.1)
[2024-02-11 11:05] LABS: CREATININE 8.1 mg/dL (0.5-1.3)
[2024-02-11 11:37] LABS: ERYTHROCYTE SEDIMENTATION RATE 35 MM/HR (0-20)
[2024-02-11] MEDS ORDERED: CEPH500B PO (12:27)
[2024-02-11 13:28] LABS: RAPID GROUP A STREP negative (NEGATIVE)
[2024-02-11 13:35] LABS: SARS-CoV-2, RNA, NAAT NEGATIVE SARS CoV-2 (NEGATIVE)
[2024-02-11 14:00] VITALS: BP 132/75; PULSE 85; RESP 16; O2SAT 97
== END 2024-02-11 14:07 | disposition home or self-care (01) ==
LOC: EDH 10:24
DX: S80.212A Abrasion, left knee, initial encounter (principal); I12.9 Hypertensive chronic kidney disease with stage 1 through stage 4 chronic kidney disease, or unspecified chronic kidney disease; E11.22 Type 2 diabetes mellitus with diabetic chronic kidney disease; N18.9 Chronic kidney disease, unspecified; E78.00 Pure hypercholesterolemia, unspecified; Z79.899 Other long term (current) drug therapy; W18.39XA Other fall on same level, initial encounter; Y93.89 Activity, other specified; Y92.89 Other specified places as the place of occurrence of the external cause; Y99.8 Other external cause status
CPT/HCPCS: 36415; 73562; 80053; 85025; 85651; 87635; 87880